=== PATIENT | female | born 1980 | race Caucasian/White ===

== ENCOUNTER 2016-04-14 01:13 | Emergency (ER) | payer OTHER ==
[~2016-04-14] VITALS: Ht 157.5 cm; Wt 101.4 kg
[~2016-04-14 01:13] MED LIST: CLIN150C PO; EFF75 PO; IBUP-1050 PO; LORA-741 PO; MONT1TAB3 PO
[2016-04-14 01:24] VITALS: TEMP 36.8; Ht 157.5 cm; Wt 101.4 kg
[2016-04-14] MEDS ORDERED: FAMOTIDINE IV INJ 20 MG in DEXTROSE 5% 100ML 100 ML IV STA (01:34)
[2016-04-14] MEDS ORDERED: ONDANSETRON INJ 2 MG/ML 2 ML VIAL IV STA (01:34)
[2016-04-14] MEDS ORDERED: SODIUM CHLORIDE 0.9% 1000ML 2,000 ML IV STA (01:34)
[2016-04-14] MEDS ORDERED: DICYCLOMINE HCL 10 MG/ML 2 ML AMP IM ONE (01:45)
[2016-04-14] MEDS ORDERED: ALBUTEROL HFA 8 GM INHALER INH STA (01:50)
[2016-04-14] MEDS ORDERED: ONDANSETRON HOME PACK 4MG OD TAB PO ONE ×2 (02:00→03:00)
[2016-04-14 02:08] VITALS: O2SAT 96
[2016-04-14 02:08] LABS: BASO % 0.5 %; BASO ABS # 0.04 K/uL (0-0.2); COMPLETE YES; EOS % 3.4 %; HEMATOCRIT 42.2 % (37-47); IG% 0.1 %; LYMPH % 22.3 %; LYMPH ABS # 1.82 K/uL (1.2-3.4); MEAN CELL VOLUME 83.9 fL (80-100); MEAN CORPUSCULAR HEMOGLOBIN 27.6 pg (25-34); MEAN CORPUSCULAR HGB CONC 32.9 g/dl (32-36); MEAN PLATELET VOLUME 10.4 fL (7.4-10.4); MONO % 9.2 %; NEUT % 64.5 %; PLATELET COUNT 330 K/uL (130-400); RED BLOOD COUNT 5.03 M/uL (4.2-5.4); WHITE BLOOD COUNT 8.16 K/uL (4.8-10.8)
[2016-04-14 02:25] LABS: URINE APPEARANCE TURBID (CLEAR); URINE BILIRUBIN NEG (NEG); URINE COLOR DK YELLOW; URINE EPITHELIAL CELL AUTO >30 /lpf (0-5); URINE NITRITE POS (NEG); URINE PH 5.5 (4.5-7.5); URINE SPECIFIC GRAVITY 1.029 (1.000-1.030); UROBILINOGEN NEG (NEG); ZZUR CULT IF INDIC CLEAN CATCH YES
[2016-04-14 02:29] LABS: MANUAL MICROSCOPIC REQUIRED? NO; REVIEW REQ? YES
[2016-04-14 02:32] LABS: PREG INTERNAL NEGATIVE QC NEG CLEAR BACKGROUND; PREG INTERNAL POSITIVE QC POS CONTROL LINE
[2016-04-14] MEDS ORDERED: CEFTRIAXONE SOD INJ 1 GM ADDVIAL IV STA (02:43)
[2016-04-14 02:47] LABS: ALKALINE PHOSPHATASE 87 U/L (45-117); ALT/SGPT 22 U/L (12-78); BLOOD UREA NITROGEN 9 mg/dl (7-18); BUN/CREATININE RATIO 10.5 (10-20); CARBON DIOXIDE 25 mmol/L (21-32); CHLORIDE 105 mmol/L (98-107); CREATININE 0.87 mg/dl (0.60-1.20); GLUCOSE 110 mg/dl (70-99)
[2016-04-14 02:50] LABS: POTASSIUM 3.5 mmol/L (3.5-5.1); SODIUM 141 mmol/L (136-145)
[2016-04-14] MEDS ORDERED: KETOROLAC TROMETHAMINE 30 MG/ML VIAL IV STA (02:50)
[2016-04-14 02:55] LABS: AST/SGOT 18 U/L (15-37)
--- NOTE | 2016-04-14 02:55 | EMERGENCY ROOM VISIT NOTE ---
History First contact with patient: 01:26 Chief Complaint: VOMITING Stated Complaint: VOMITING ,DIARRHEA History of Present Illness The patient is a 36 year old female who presents to the Emergency Room with complaints of cough, congestion, fever, chills, vomiting and diarrhea for the past few days. Her mother sick with influenza. Other family members are sick currently. Patient does smoke. No temperature was taken. She is not had anything for antipyretics today. Patient denies recent antibiotics, well water traveling. Patient denies chest pain, dyspnea, neck stiffness, sore throat, headache. No blood or black in the vomiting or diarrhea. Review of Systems See HPI for pertinent positives & negatives. A total of 10 systems reviewed and were otherwise negative. Past Medical/Surgical History Medical Problems: (1) Asthma (2) Cholecystectomy (3) Kidney stone (4) PERSONAL HISTORY OF PEPTIC ULCER DISEASE (5) right ankle sprain Family History Diabetes mellitus Social History Smoking Status: Current Every Day Smoker Alcohol Use: occasionally Drug Use: none Marital Status: single Housing Status: lives with family Current/Historical Medications Scheduled Clindamycin Hcl (Cleocin), 150 MG PO QID Lorazepam (Ativan), 0.5 MG PO DAILY Montelukast Sodium (Singulair), 10 MG PO HS Venlafaxine Hcl (Effexor), 75 MG PO DAILY Scheduled PRN Ibuprofen (Advil), 800 MG PO Q8 PRN for Pain Allergies Coded Allergies: Nitrofurantoin (Verified Allergy, Mild, 11/30/14) Cephalosporins (Verified Allergy, Unknown, 11/30/14) Penicillins (Verified Allergy, Unknown, 11/30/14) Sumatriptan (Verified Allergy, Unknown, RASH, 11/30/14) Physical Exam Vital Signs Date Time Temp Pulse Resp B/P Pulse Ox O2 Delivery O2 Flow Rate FiO2 04/14/16 02:08 96 Room Air 04/14/16 01:24 36.8 96 20 120/84 96 Room Air Physical Exam VITALS: Vitals are noted on the nurse's note and reviewed by myself. Vital signs stable. GENERAL: Pleasant female, in no acute distress, nondiaphoretic, well-developed well-nourished. SKIN: The skin was without rashes, erythema, edema, or bruising. There is no tenting of the skin. Capillary reflex less than 2 seconds. HEAD: Normocephalic atraumatic. EARS: External auditory canals clear, tympanic membranes pearly jacobsen without erythema or effusion bilaterally. EYES: Pupils equal round and reactive to light and accommodation. Conjunctivae without injection, sclerae without icterus. Extraocular movements intact. NOSE: Patent, turbinates without inflammation or discharge. No sinus tenderness. MOUTH: Mucous membranes mildly dry. Pharynx without erythema or exudate. Uvula midline. Airway patent. Tongue does not deviate. NECK: Supple without nuchal rigidity. No lymphadenopathy. No thyromegaly. Cervical spine is nontender. No JVD. HEART: Regular rate and rhythm without murmurs gallops or rubs. LUNGS: Clear to auscultation bilaterally without wheezes, rales or rhonchi. No dullness to percussion. No retractions or accessory muscle use. ABDOMEN: Positive bowel sounds x 4. Normal tympanic percussion. Soft, mild diffuse tenderness with no localized pain. No CVA tenderness, without masses or organomegaly. Cervantes sign negative. No guarding or rebound tenderness. MUSCULOSKELETAL: No muscle atrophy, erythema, or edema noted. NEURO: Patient was alert and oriented to person place and time. Normal sensation to light and sharp touch. No focal neurological deficits. Medical Decision & Procedures Laboratory Results 04/14/16 01:55 Red Blood Count 5.03, Mean Corpuscular Volume 83.9, Mean Corpuscular Hemoglobin 27.6, Mean Corpuscular Hemoglobin Concent 32.9, Mean Platelet Volume 10.4, Neutrophils (%) (Auto) 64.5, Lymphocytes (%) (Auto) 22.3, Monocytes (%) (Auto) 9.2, Eosinophils (%) (Auto) 3.4, Basophils (%) (Auto) 0.5, Neutrophils # (Auto) 5.26, Lymphocytes # (Auto) 1.82, Monocytes # (Auto) 0.75, Eosinophils # (Auto) 0.28, Basophils # (Auto) 0.04 04/14/16 01:55 Test 04/14/16 01:55 White Blood Count 8.16 K/uL (4.8-10.8) Red Blood Count 5.03 M/uL (4.2-5.4) Hemoglobin 13.9 g/dL (12.0-16.0) Hematocrit 42.2 % (37-47) Mean Corpuscular Volume 83.9 fL (80-100) Mean Corpuscular Hemoglobin 27.6 pg (25-34) Mean Corpuscular Hemoglobin Concent 32.9 g/dl (32-36) Platelet Count 330 K/uL (130-400) Mean Platelet Volume 10.4 fL (7.4-10.4) Neutrophils (%) (Auto) 64.5 % Lymphocytes (%) (Auto) 22.3 % Monocytes (%) (Auto) 9.2 % Eosinophils (%) (Auto) 3.4 % Basophils (%) (Auto) 0.5 % Neutrophils # (Auto) 5.26 K/uL (1.4-6.5) Lymphocytes # (Auto) 1.82 K/uL (1.2-3.4) Monocytes # (Auto) 0.75 K/uL (0.11-0.59) Eosinophils # (Auto) 0.28 K/uL (0-0.5) Basophils # (Auto) 0.04 K/uL (0-0.2) RDW Standard Deviation 45.2 fL (36.4-46.3) RDW Coefficient of Variation 14.7 % (11.5-14.5) Immature Granulocyte % (Auto) 0.1 % Immature Granulocyte # (Auto) 0.01 K/uL (0.00-0.02) Urine Color DK YELLOW Urine Appearance TURBID (CLEAR) Urine pH 5.5 (4.5-7.5) Urine Specific [place] 1.029 (1.000-1.030) Urine Protein 1+ (NEG) Urine Glucose (UA) NEG (NEG) Urine Ketones TRACE (NEG) Urine Occult Blood TRACE (NEG) Urine Nitrite POS (NEG) Urine Bilirubin NEG (NEG) Urine Urobilinogen NEG (NEG) Urine Leukocyte Esterase MODERATE (NEG) Urine WBC (Auto) >30 /hpf (0-5) Urine RBC (Auto) 0-4 /hpf (0-4) Urine Hyaline Casts (Auto) 5-10 /lpf (0-5) Urine Epithelial Cells (Auto) >30 /lpf (0-5) Urine Bacteria (Auto) 4+ (NEG) Urine Crystals CALCIUM OXALATE (NONE Urine Pathogenic Casts /lpf (0) Urine Yeast (Auto) (NONE PRSENT) Anion Gap 11.0 mmol/L (3-11) Est Creatinine Clear Calc Drug Dose 99.7 ml/min Estimated GFR () 99.3 Estimated GFR (Non- 85.7 BUN/Creatinine Ratio 10.5 (10-20) Calcium Level 9.0 mg/dl (8.5-10.1) Total Bilirubin 0.2 mg/dl (0.2-1) Alanine Aminotransferase (ALT/SGPT) 22 U/L (12-78) Alkaline Phosphatase 87 U/L (45-117) Total Protein 8.1 gm/dl (6.4-8.2) Albumin 3.3 gm/dl (3.4-5.0) Lipase 84 U/L (73-393) Human Chorionic Gonadotropin, Qual NEG (NEG) Influenza Type A Antigen Neg for Influ A (NEG) Influenza Type B Antigen Neg for Influ B (NEG) Medications Administered Medications (Trade) Dose Ordered Sig/Kota Route Start Time Stop Time Status Last Admin Dose Admin Sodium Chloride (Nss 1000ml) 2,000 ml @ 999 mls/hr Q2H1M STAT IV 04/14/16 01:34 04/14/16 03:34 04/14/16 01:59 999 MLS/HR Ondansetron HCl (Zofran Inj) 4 mg NOW STAT IV 04/14/16 01:34 04/14/16 01:35 DC 04/14/16 02:04 4 MG Dicyclomine HCl 20 mg 20 mg NOW ONCE IM 04/14/16 01:45 04/14/16 01:46 DC 04/14/16 02:05 20 MG Famotidine/ Dextrose (Pepcid IV Inj/ D5 100ml) 102 ml @ 200 mls/hr NOW STAT IV 04/14/16 01:34 04/14/16 02:04 DC 04/14/16 01:59 200 MLS/HR ED Course Prior records/ancillary studies reviewed. Triage Nursing notes reviewed. Additional history obtained from the family. The patient's history was concerning for cough, fever, nausea, vomiting, diarrhea, and abdominal pain. Differential diagnosis: Etiologies such as influenza, gastroenteritis, food borne illness, infections, appendicitis, diverticulitis, inflammatory bowel disease, obstruction, GI bleed , biliary pathology, as well as others were entertained. Physical examination findings: As above. Abdominal examination revealed no localized tenderness. Vital signs reviewed and revealed stable. ER treatment provided: IV hydration 2 L NSS. Zofran, Bentyl, Pepcid On reassessment the patient felt better. Patient was tolerating p.o. intake. Diagnostics interpretation by me: The labs revealed urine consistent with infection and sent for culture. Negative hCG. Negative flu. No leukocytosis Imaging studies: Chest x-ray with no acute consolidation, free air or pneumothorax per my interpretation This appears to be consistent with vomiting and diarrhea with UTI. Patient felt much better after being medicated as above. No pneumonia on x-ray. She was afebrile and nontoxic. She was advised to do clear liquid diet today and then progress as tolerated to bland diet tomorrow. She is advised to follow-up family care in a few days or here in the ER sooner for abdominal pain, fevers, vomiting, worsening signs or symptoms or as needed. Patient did not have acute abdomen on exam. She was well-appearing. By the evaluation outlined above emergent etiologies such as appendicitis, diverticulitis, obstruction, cardiac sources, mesenteric ischemia, aortic pathology, inflammatory bowel disease, renal colic, PUD, biliary pathology, as well as others were deemed relatively unlikely. The pt informed about the findings as listed above. All questions were answered and pleased with the treatment. Return instructions were outlined and the patient was discharged in stable condition. Outpatient prescription management: Zofran, Bactrim Referral: The patient was referred to their primary care physician for follow-up in 2 to 3 days for a recheck of the current condition. Case reviewed with my attending Medical Decision As above Impression Primary Impression: Nausea, vomiting, and diarrhea Additional Impressions: Acute bronchitis UTI (urinary tract infection) Departure Information Dispostion Home / Self-Care Condition GOOD Referrals Franck Moya M.D. (PCP) Patient Instructions My [facility] Additional Instructions DO NOT drive, drink alcohol, operate machinery, or perform dangerous activities today. You were given medications in the ER that can affect your ability to safely function or operate a vehicle. Trimethoprim-Sulfamethoxazole(Bactrim DS): Take one pill twice daily for 3 days for your urine infection. All antibiotics can cause diarrhea. If this occurs and you feel worse or it does not resolve in 1-2 days follow up with your doctor or return to the Emergency Department as this could be signs of serious underlying problems. Any medication can cause an allergic reaction, stop the pills immediately and return to the ER for rash, hives, breathing difficulties, or swelling. Albuterol Inhaler: Take 2 puffs four times daily for five days, then as needed. Zofran(odansetron) tablets 4mg: Take one and allow it to dissolve in your mouth every four to six hours as needed for nausea or vomiting. Acetaminophen(Tylenol) may be used for fever or pain. Use 1000mg every six hours as needed. Avoid using more than 3000mg in a 24 hour period. Rest and drink plenty of fluids as tolerated. Slow sips of water or sports drinks are recommended instead of large amounts all at once. Continue current medications. Once your stomach is settled start with a clear liquid diet (jello, soup broth, etc.) and then advance as tolerated. You should avoid full, heavy meals for about 24 hrs from the time your symptoms resolved. Return to the ER for persistent vomiting, fevers, abdominal pain, chest pains, difficulty breathing, black or bloody stools, worsening of your condition, or as needed. Follow up with your primary physician in 2-3 days for a recheck of your current condition. Problem Qualifiers
[2016-04-14] MEDS ORDERED: SEPTRA DS HOME PACK 1 EA VIAL PO ONE (03:00)
[2016-04-14] MEDS ORDERED: VNTHFA/IN INH (03:12)
[2016-04-14] MEDS ORDERED: OMEP20CA59 PO (03:12)
[2016-04-14] MEDS ORDERED: TRAZ100T29 PO (03:12)
[2016-04-14] MEDS ORDERED: SULF800T23 PO (03:31)
[2016-04-14 03:33] VITALS: BP 108/63; PULSE 72; O2SAT 96
--- NOTE | 2016-04-14 08:14 | DIAGNOSTIC IMAGING REPORT ---
CHEST 2 VIEWS ROUTINE HISTORY: cough. fever COMPARISON: Chest 923 of 7. FINDINGS: The lungs are clear. Cardiac silhouette is normal in size. No pleural effusions. No pneumothorax. Cholecystectomy. Dextroscoliosis of the thoracic spine, unchanged. IMPRESSION: No acute process. Electronically signed by: Kevon Li M.D. 04/14/2016 8:12 AM Dictated Date/Time: 04/14/2016 8:11 AM
--- NOTE | 2016-04-17 11:06 | Pharmacy Progress Note ---
ED Pharmacist Culture FollowUp Date of Service: Apr 17, 2016. Provider's note reviewed. Patient was felt to have UTI based upon UA, although no urinary symptoms reported, however she did have a fever, possibly secondary to bronchitis. HCG negative. She was discharged with Rx for Bactrim DS 1 tab PO BID x 3 days. Urine Cx from 04/14 grew E coli sensitive to SMX/TMP. No action required at this time.
== END 2016-04-14 03:40 | disposition home or self-care (01) ==
LOC: C.EDB 01:15
DX: R11.2 Nausea with vomiting, unspecified (principal); R19.7 Diarrhea, unspecified; J20.9 Acute bronchitis, unspecified; N39.0 Urinary tract infection, site not specified; F17.200 Nicotine dependence, unspecified, uncomplicated; J45.909 Unspecified asthma, uncomplicated; Z90.49 Acquired absence of other specified parts of digestive tract; Z87.11 Personal history of peptic ulcer disease; A49.8 Other bacterial infections of unspecified site

== ENCOUNTER → 2016-12-07 | Outpatient (CLI) | payer OTHER ==
[~2016-12-07] MED LIST changes: -CLIN150C PO; -IBUP-1050 PO; -LORA-741 PO; -MONT1TAB3 PO; +OMEP20CA59 PO; +TRAZ100T29 PO; +VNTHFA/IN INH
[2016-12-07 12:18] LABS: HEMATOCRIT 41.1 % (37-47); MEAN CELL VOLUME 85.8 fL (80-100); MEAN CORPUSCULAR HEMOGLOBIN 26.5 pg (25-34); MEAN CORPUSCULAR HGB CONC 30.9 g/dl (32-36); MEAN PLATELET VOLUME 10.5 fL (7.4-10.4); PLATELET COUNT 372 K/uL (130-400); RED BLOOD COUNT 4.79 M/uL (4.2-5.4); WHITE BLOOD COUNT 14.21 K/uL (4.8-10.8)
[2016-12-07 12:42] LABS: PREG INTERNAL NEGATIVE QC NEG CLEAR BACKGROUND; PREG INTERNAL POSITIVE QC POS CONTROL LINE
== END | disposition home or self-care (01) ==
LOC: C.LAB1850 10:16
PROVIDERS: ATTEND Physician Assistant
DX: N93.9 Abnormal uterine and vaginal bleeding, unspecified (principal)

== ENCOUNTER → 2016-12-07 | Outpatient (CLI) | payer OTHER | END | disposition home or self-care (01) | LOC: C.PAPS 11:36 | PROVIDERS: ATTEND Physician Assistant | DX: Z12.4 Encounter for screening for malignant neoplasm of cervix (principal); Z11.51 Encounter for screening for human papillomavirus (HPV) ==

== ENCOUNTER → 2017-01-01 | Outpatient (CLI) | payer OTHER | END | disposition home or self-care (01) | LOC: C.PATHSPEC 17:46 | PROVIDERS: ATTEND Obstetrics & Gynecology | DX: N93.9 Abnormal uterine and vaginal bleeding, unspecified (principal); N85.00 Endometrial hyperplasia, unspecified ==

== ENCOUNTER 2017-01-22 05:46 | Observation (INO) | payer OTHER ==
[2017-01-11 15:51] VITALS: BMI 41.0
--- NOTE | 2017-01-17 13:45 | PAT Medication Instructions ---
Service Date Jan 17, 2017. Current Home Medication List Acetamin/Butalbital/Caffeine (Fioricet), 1 TAB PO Q4H PRN for MIGRAINES Albuterol Hfa (Ventolin Hfa), 2-4 PUFFS INH Q6H PRN for SOB/Wheezing Buspirone Hcl (Buspirone Hcl), 10 MG PO BID Levocetirizine Dihydrochloride (Xyzal), 5 MG PO HS Montelukast Sodium (Singulair), 10 MG PO HS Omeprazole (Prilosec), 20 MG PO HS Trazodone Hcl (Trazodone), 100-200 MG PO HS Venlafaxine Hcl (Effexor Xr), 75 MG PO HS Venlafaxine Hcl (Effexor Extended Rel), 150 MG PO HS Medication Instructions For Your Scheduled Surgery - Hold the following medications the morning of surgery: Acetamin/Butalbital/Caffeine (Fioricet), 1 TAB PO Q4H PRN for MIGRAINES - Take the following medications the morning of surgery with a sip of water OTHERWISE NOTHING TO EAT OR DRINK AFTER MIDNIGHT: Buspirone Hcl (Buspirone Hcl), 10 MG PO BID Albuterol Hfa (Ventolin Hfa), 2-4 PUFFS INH Q6H PRN for SOB/Wheezing (use if needed; BRING TO HOSPITAL) - Take the following medications as scheduled the night before surgery: Levocetirizine Dihydrochloride (Xyzal), 5 MG PO HS Montelukast Sodium (Singulair), 10 MG PO HS Omeprazole (Prilosec), 20 MG PO HS Trazodone Hcl (Trazodone), 100-200 MG PO HS Venlafaxine Hcl (Effexor Xr), 75 MG PO HS Venlafaxine Hcl (Effexor Extended Rel), 150 MG PO HS Buspirone Hcl (Buspirone Hcl), 10 MG PO BID Acetamin/Butalbital/Caffeine (Fioricet), 1 TAB PO Q4H PRN for MIGRAINES Albuterol Hfa (Ventolin Hfa), 2-4 PUFFS INH Q6H PRN for SOB/Wheezing If you have any questions please call us at [phone] or [phone] or [phone]
[2017-01-17 14:23] LABS: BASO % 0.5 %; BASO ABS # 0.06 K/uL (0-0.2); COMPLETE YES; EOS % 1.9 %; HEMATOCRIT 39.9 % (37-47); IG% 0.2 %; LYMPH % 18.6 %; LYMPH ABS # 2.33 K/uL (1.2-3.4); MEAN CELL VOLUME 85.6 fL (80-100); MEAN CORPUSCULAR HGB CONC 31.6 g/dl (32-36); MEAN PLATELET VOLUME 10.2 fL (7.4-10.4); MONO % 5.2 %; NEUT % 73.6 %; PLATELET COUNT 361 K/uL (130-400); RED BLOOD COUNT 4.66 M/uL (4.2-5.4); WHITE BLOOD COUNT 12.51 K/uL (4.8-10.8)
[2017-01-17 16:36] LABS: CALCIUM 9.1 mg/dl (8.5-10.1); CREATININE 0.74 mg/dl (0.60-1.20); POTASSIUM 4.4 mmol/L (3.5-5.1)
[~2017-01-22] VITALS: Ht 157.5 cm; Wt 102.3 kg
[2017-01-22] VITALS (9 sets, daily range): BP systolic 103–133; BP diastolic 69–86; PULSE 74–115; TEMP 36.3–36.9; O2SAT 94–98; Ht 157.5 cm; Wt 102.3 kg
[~2017-01-22 05:46] MED LIST changes: +BUSP-8 PO; -EFF75 PO; +FRCT/ PO; +LEVO5TAB2 PO; +MONT1TAB3 PO; +VENL150C56 PO; +VENL75CA PO
[2017-01-22] MEDS ORDERED: GENTAMICIN INJ 150 MG in DEXTROSE 5% 100ML 100 ML IV SCH (06:00)
[2017-01-22] MEDS ORDERED: CLINDAMYCIN 600 MG/54 ML D5W 54 ML IV SCH (06:00)
[2017-01-22] MEDS ORDERED: PROMETHAZINE HCL INJ 12.5 MG in SODIUM CHLORIDE 0.9% 50ML 50 ML IV PRN (06:30)
[2017-01-22] MEDS ORDERED: HYDROmorphone INJ 1 MG/ML SYR IV PRN (06:30)
[2017-01-22] MEDS ORDERED: ONDANSETRON INJ 2 MG/ML 2 ML VIAL IV PRN ×2 (06:30→09:30)
[2017-01-22] MEDS ORDERED: ATROPINE SULFATE 0.1 MG/ML 5ML SYR IV PRN (06:30)
[2017-01-22] MEDS ORDERED: EpHEDrine SULFATE INJ 50 MG/ML AMP IV PRN (06:30)
[2017-01-22] MEDS ORDERED: VASOPRESSIN 20 UNIT/ML VIAL ONE (07:00)
[2017-01-22] MEDS ORDERED: LACTATED RINGER'S 1000ML 1,000 ML IV SCH ×2 (07:00→09:19)
[2017-01-22] MEDS ORDERED: LIDOCAINE HCL 2% 2 ML VIAL (20MG/ML) ONE (07:00)
[2017-01-22] MEDS ORDERED: MIDAZOLAM HCL 1 MG/ML 2ML VIAL ONE (07:00)
[2017-01-22] MEDS ORDERED: PROPOFOL IV EMULSION 10 MG/ML 20 ML VIAL IV ONE (07:00)
[2017-01-22] MEDS ORDERED: FENTANYL CITRATE INJ 50 MCG/1 ML 2 ML VIAL ONE ×3 (07:00→09:29)
[2017-01-22] MEDS ORDERED: ROCURONIUM BROMIDE 10 MG/ML 5 ML VIAL IV ONE (07:00)
[2017-01-22] MEDS ORDERED: BUPIVACAINE 0.5 % 5 MG/1 ML MPF 30ML VIAL ONE (07:08)
[2017-01-22] MEDS ORDERED: METHYLENE BLUE 0.5% 10 ML VIAL ONE (07:09)
--- NOTE | 2017-01-22 07:19 | History & Physical Bridge Note ---
H&P Re-Evaluation Bridge Note: I have examined the patient, reviewed the History & Physical and in the interval since the performance of the History & Physical I have noted the following changes of clinical significance: No changes noted
[2017-01-22] MEDS ORDERED: ONDANSETRON INJ 2 MG/ML 2 ML VIAL ONE (08:51)
[2017-01-22] MEDS ORDERED: GLYCOPYRROLATE INJ 0.2 MG/ML VIAL ONE (08:51)
[2017-01-22] MEDS ORDERED: DEXAMETHASONE SOD INJ 4 MG/ML VIAL ONE (08:51)
[2017-01-22] MEDS ORDERED: NEOSTIGMINE METHYLSULFATE 5 MG/5 ML SYR ONE (08:51)
--- NOTE | 2017-01-22 09:19 | [facility] Post Operative Brief Note ---
Immediate Operative Summary Operative Date Jan 22, 2017. Pre-Operative Diagnosis Abnormal uterine bleeding; metrorrhagia; pelvic pain Post-Operative Diagnosis Same as preop Procedure(s) Performed Robotic-assisted Total Laparoscopic Hysterectomy, bilateral salpingectomy, cystoscopy Surgeon Dr. Tao Wildlife Manager Surgeon(s) none Estimated Blood Loss 5 cc Findings mobile uterus sounds to 8cm. normal ovaries bilaterally and fallopian tubes. Bilateral fallopian tubes with paratubal cysts. Liver edge seen barely, obscured by omental fat. filmy adhesions of bladder to anterior lower uterine segment. cystoscopy findings, normal bladder filling, normal bilateral ureteral jets. Fluids (cc crystalloids) 1000 Specimens A: uterus, cervix, bilateral fallopian tubes Drains umanzor Anesthesia general Complication(s) None Disposition Recovery Room / PACU
[2017-01-22] MEDS ORDERED: MTR600X PO (09:24)
[2017-01-22] MEDS ORDERED: OXYC-57 PO (09:24)
--- NOTE | 2017-01-22 09:25 | Discharge Instructions ---
Discharge Instructions Date of Service Jan 22, 2017. Admission Reason for Admission: Abnormal Uterine Bleeding, Pelvic Pain Discharge Discharge Diagnosis / Problem: after surgery Discharge Goals Goal(s): Routine recovery after surgery Activity Recommendations Activity Limitations: as noted below . Instructions / Follow-Up Instructions / Follow-Up POST OPERATIVE: BOWEL FUNCTION/MEDICATIONS: 1. Constipation pain and discomfort are the most common complaints 5-7 days after surgery. Points 2-6 address the things that can help. 2. Chewing gum can help stimulate the gut and help improve digestion and motility. 3. Milk of Magnesia 1-2 times per day until return of bowel function. 4. Colace is a stool softener that helps. Taking this 2-3 times per day until bowel function returns to normal is highly recommended. 5. Dulcolax is a laxative that may be used if several days have passed without a bowel movement. Alternatively Miralax may be used daily instead. 6. Drink plenty of fluids as this will also reduce constipation. 7. Narcotic pain medications will be prescribed by your physician. They are safe to use and we encourage you to use them. If you are not allergic, ibuprofen will also be prescribed. Many patients will be able to transition off of the narcotic medications to ibuprofen by postoperative day 3. ACTIVITY RECOMMENDATIONS: 1. Get plenty of rest and listen to your body. If you are tired, take a nap. 2. You may shower, but do not take a tub bath until you see your doctor at the 2 week post operative visit. 3. Absolutely NO intercourse and nothing in the vagina until you are examined by your doctor at the 8 week visit. At that visit it will be determined when such activities can be resumed. This can range from 6-12 weeks after your surgery depending on healing time. 4. The main physical activity in the first week should be walking. By the second week you can slowly increase activity. There are no limits on walking up and down stairs. 5. Do not lift more than 5-10 lbs for 4 weeks. Remember the "one-handed rule", i.e. if you can lift something with only one hand it's likely okay. 6. Minimize soda drier feeder like vacuuming and exercising for 4 weeks. "Overdoing it" can lead to incisions not healing, pain and vaginal bleeding , so again, listen to your body. 7. Driving can be resumed when you feel able. Do not drive within 24 hours of taking a narcotic medication. EXPECTATIONS: 1. Vaginal spotting, bleeding and discharge are common after surgery. There may even be an odor to the discharge which is often related to sutures used in the vagina. If you experience heavy vaginal bleeding, call the office number day or night [phone]. 2. Bladder discomfort is common after surgery from the catheter. This usually resolves in 1-2 weeks. 3. By the end of the 3rd or 4th week you should be feeling much better. It may take up to 6 weeks for your energy levels to return to normal. 4. Narcotic medications have side effects such as: dizziness, headache, nausea and/or vomiting. If you suspect your pain medication is causing problems, call our office and we may be able to prescribe an alternate medication. 5. The skin incisions are often covered with a liquid bandage. This will gradually peel off over time. CALL THE OFFICE IF YOU HAVE ANY OF THE FOLLOWIN. Temperature of 101 degrees or higher. 2. Severe abdominal or pelvic pain not relieved by pain medication. 3. Persistent nausea or vomiting. 4. Increased pain with urination or difficulty urinating. 5. Bright red bleeding that soaks more than 1 pad per hour. CONTACT PHONE NUMBERS: Main Office: [phone] Surgical Nurse: [phone] extension [phone] FOLLOW-UP: Post-Operative Appointments: * Individual instructions will have been given about the timing of your first examination, but this is usually at the end of the second week home. * You will need to call the office at soon after discharge to make the appointment for your post-op check-up if it has not already been scheduled. * Additional information regarding activity, sexual intercourse and when to return to work will be given at this appointment. WE WISH YOU A SPEEDY RECOVERY! Current Hospital Diet Patient's current hospital diet: Discharge Diet Recommended Diet: Regular Diet Procedures Procedures Performed: Robotic-assisted Total Laparoscopic Hysterectomy, bilateral salpingectomy, cystoscopy Pending Studies Studies pending at discharge: yes List of pending studies: pathology Medical Emergencies . Who to Call and When: Medical Emergencies: If at any time you feel your situation is an emergency, please call 911 immediately. . Non-Emergent Contact Non-Emergency issues call your: Supervisor Beam Department . . "Provider Documentation" section prepared by Daphne Tao. . VTE Core Measure Inpt VTE Proph given/why not?: [place]CD[place] Drug Monitoring Program Search Results: patient reviewed within database, no issues identified, see additional documentation (aware of recent narcotic from dentist)
[2017-01-22] MEDS ORDERED: SIMETHICONE 80 MG CHEW PO PRN (09:30)
[2017-01-22] MEDS ORDERED: OXYCODONE/ACETAMINOPHEN 5-325 TAB PO PRN ×2 (09:30)
[2017-01-22] MEDS ORDERED: IBUPROFEN 600 MG TAB PO PRN (09:30)
[2017-01-22] MEDS ORDERED: KETOROLAC TROMETHAMINE 30 MG/ML VIAL IV. PRN (09:30)
[2017-01-22] MEDS ORDERED: IV FLUIDS COMPLETED PRN (09:30)
[2017-01-22] MEDS ORDERED: ACETAMINOPHEN 325 MG TAB PO PRN (09:30)
--- NOTE | 2017-01-22 09:54 | [facility] Operative Report ---
Operative Report Operative Date Jan 22, 2017. Pre-Operative Diagnosis Abnormal uterine bleeding; metrorrhagia; pelvic pain Post-Operative Diagnosis Same as preop Procedure(s) Performed Robotic-assisted Total Laparoscopic Hysterectomy, bilateral salpingectomy, cystoscopy Surgeon Dr. Tao Envelope Stamping Machine Operator Surgeon(s) none Estimated Blood Loss 5 cc Findings normal uterus, mobile, sounds to 8cm. filmy adhesions of bladder anteriorly. bilateral ovaries and fallopian tubes are normal. bilateral paratubal cysts are noted. liver edge barely seen and normal, obscured by omental fat. cystoscopy findings, normal bladder filling and normal ureteral jets. Fluids 1000 Specimens A: uterus, cervix, bilateral fallopian tubes Drains umanzor Anesthesia general Disposition Recovery Room / PACU Indications 36-year-old with a history of abnormal uterine bleeding, metrorrhagia and pelvic pain who desires definitive surgical management for her bleeding problems. She has tried a Mirena IUD previously and felt to much pain. I did not think she was a great candidate for an ablation given her metrorrhagia and morbid obesity. She declined hormonal management. She is aware that hysterectomy would likely not solve her pain issues. She wanted the procedure for management of her bleeding issues. Description of Procedure Patient was taken to the operating room and identified. After adequate general anesthesia was obtained obtained she was placed in the dorsolithotomy position and prepped and draped in the usual sterile fashion. Attention was turned to the patient's vagina where a Umanzor catheter was placed under sterile conditions. Retractors the cervix was visualized and grasped on its anterior lip with a single-toothed tenaculum. A single interrupted suture of 0 Vicryl was placed at the 3 o'clock position. Cervix was sequentially dilated using Hegar dilators to 23. The uterus sounded to 8 cm. The [employer] care uterine manipulator was gently placed through the cervical os into the uterine cavity and the balloon was inflated. The cup was tied down and the stabilizing cup was placed after all the retractors were removed. Attention was then turned to the patient's abdomen. An infraumbilical skin incision was made with the scalpel. A Veress needle was placed however this was unsuccessful due to high opening pressures. Using retractors the fascia was identified. It was elevated and opened up into sharply using Metzenbaum scissors. Under direct visualization the 12 mm trocar was placed intraperitoneally. A pneumoperitoneum was created and the patient was placed in steep Trendelenburg. The pelvis was inspected with the findings as noted above. Two da Tha trocar sites left and right of the midline were created by first making skin incisions and then placing under direct visualization da Tha trocars. The da Tha robot was then brought to the patient's bedside. The appropriate instrument arms were connected to the appropriate trochars. The camera was introduced. The monopolar ramón through instrument arm #1 and the fenestrated bipolar instrument arm #2 were introduced into the abdomen. The surgeon then went to the console. The left infundibulopelvic ligament was identified. The fallopian tube was dissected off to be included in the specimen using monopolar ramón and bipolar cautery. The round ligament/ utero-ovarian ligament complex was then coagulated and transected. The bladder flap was begun from the left towards the midline. The uterine artery pedicle was skeletonized and then coagulated. It was transected and further coagulation then took place. Attention was turned to the right utero -ovarian ligament round ligament fallopian tube complex. The fallopian tube was dissected away to be included a specimen from the mesosalpinx. The utero- ovarian round ligament complex was coagulated and transected. The bladder flap was begun from the right and then across the midline. Uterine artery pedicle was skeletonized. It was coagulated and transected sequentially. The cardinal ligament attachments were further coagulated and transected. Attention was returned to the left cardinal ligament which was also coagulated and transected. The bladder fibers were coagulated and transected and pushed well away from the planned colpotomy and the colpotomy was begun. It was carried down circumferentially and the cervix was carved away from the upper vagina. The specimen was then brought out vaginally. The 2-0V LOC 90 suture was then brought in through the vagina. The #1 instrument arm was replaced with a large needle pile driver operator. The cuff was then closed in a usual fashion using the suture material. Back stitches were placed. The scissors and then a needle pile driver operator were brought through instrument arm #1 to take the suture material out of the abdomen. The pelvis was then irrigated. There was no active bleeding sites. The CO2 pneumoperitoneum was let down and there were still no active bleeding sites. At this point the procedure was terminated. The CO2 gas was allowed to escape from the patient patient's abdomen after the camera and instruments were removed. A cystoscopy was performed with the findings as noted above. A new Umanzor catheter was placed. The da Tha was then moved away from the patient's bedside. The trocars were removed. The fascia was reapproximated in from the day with an interrupted suture of 0 Vicryl. All incisions were dressed with Marcaine and stitched in a subcuticular fashion using 4-0 Vicryl. They were then dressed with Dermabond. The patient was returned to supine position she delivered from anesthesia and transported to recovery room in stable condition. All sponge lap and needle counts were correct 2. I attest to the content of the Intraoperative Record and any orders documented therein. Any exceptions are noted below.
[2017-01-22] MEDS: FENTANYL CITRATE INJ 50 MCG/1 ML 2 ML VIAL IV PRN ×3 (09:59→10:11)
--- NOTE | 2017-01-22 10:20 | Anesthesiology Progress Note ---
Anesthesia Post Op Note Date & Time Jan 22, 2017 at 10:19 Vital Signs Pain Intensity: 5 Vital Signs Past 12 Hours Date Time Temp Pulse Resp B/P (MAP) Pulse Ox O2 Delivery O2 Flow Rate FiO2 01/22/17 10:10 108 16 133/88 97 Nasal Cannula 4 01/22/17 10:00 103 16 147/97 97 Nasal Cannula 4 01/22/17 09:50 109 16 147/97 97 Oxymask 15 01/22/17 09:40 115 14 143/90 97 Oxymask 15 01/22/17 09:31 36.4 116 14 137/82 97 Oxymask 15 01/22/17 06:10 36.6 115 18 123/75 (91) 95 Room Air Notes Mental Status: alert / awake / arousable, participated in evaluation Pt Amnestic to Procedure: Yes Nausea / Vomiting: adequately controlled Pain: adequately controlled Airway Patency, RR, SpO2: stable & adequate BP & HR: stable & adequate Hydration State: stable & adequate Anesthetic Complications: no major complications apparent
--- NOTE | 2017-01-22 11:29 | Medical Student: [facility] ---
Immediate Operative Summary Operative Date Jan 22, 2017. Pre-Operative Diagnosis abnormal uterine bleeding, metrorrhagia, pelvic pain Post-Operative Diagnosis same as pre-operative diagnosis Procedure(s) Performed Robotic-assisted total laparoscopic hysterectomy, bilateral salpingectomy, and cystoscopy Surgeon Dr. Tao Rigger Surgeon(s) none Estimated Blood Loss 5cc Findings Normal appearing approximately 8-10cm uterus. Normal appearing fallopian tubes and ovaries. Paratubal cysts were present. Anterior uterine wall adhesions to the bladder. Cystoscopy revealed normal ureteral flow. Fluids (cc crystalloids) 1000cc Specimens uterus, cervix, and bilateral fallopian tubes Drains Stock Anesthesia general Complication(s) None Disposition Recovery Room / PACU
--- NOTE | 2017-01-22 20:08 | Discharge Summary ---
Discharge Summary Date of Service Jan 22, 2017. Date of discharge 01/22/17 Discharge Summary Admission diagnoses: abnormal uterine bleeding, metrorrhagia, pelvic pain Discharge diagnoses: same Procedures: total laparoscopic hysterectomy, bilateral salpingectomies, cystoscopy, robotic assistance Brief history and hospital course: 36yo with abnormal bleeding, metrorrhagia and pelvic pain in setting of morbid obesity who desires definitive surgical therapy. See H&P for full details. She underwent the above procedures without incident. Her estimated blood loss was 5cc. On her postoperative day #0 she was stable for discharge home. She was given pain medication prescriptions and instructions. She was to followup in 2 weeks for postoperative check up.
== END 2017-01-22 18:05 | disposition home or self-care (01) ==
LOC: C.ACU 05:46 → C.MS4N 06:30 → ENRESERV 10:11
PROVIDERS: ADMIT Obstetrics & Gynecology; ATTEND Obstetrics & Gynecology
DX: N93.9 Abnormal uterine and vaginal bleeding, unspecified (principal); N92.1 Excessive and frequent menstruation with irregular cycle; R10.2 Pelvic and perineal pain; D28.2 Benign neoplasm of uterine tubes and ligaments; J45.909 Unspecified asthma, uncomplicated; F32.9 Major depressive disorder, single episode, unspecified; G43.909 Migraine, unspecified, not intractable, without status migrainosus; F17.200 Nicotine dependence, unspecified, uncomplicated; E66.01 Morbid (severe) obesity due to excess calories; Z68.41 Body mass index [BMI] 40.0-44.9, adult; Z88.0 Allergy status to penicillin; Z90.89 Acquired absence of other organs; Z90.49 Acquired absence of other specified parts of digestive tract; Z98.890 Other specified postprocedural states; Z81.8 Family history of other mental and behavioral disorders; Z83.3 Family history of diabetes mellitus; Z82.49 Family history of ischemic heart disease and other diseases of the circulatory system
CPT/HCPCS: 58571; S2900

== ENCOUNTER → 2017-02-08 | Outpatient (CLI) | payer OTHER ==
[~2017-02-08] MED LIST changes: +MTR600X PO; +OXYC-57 PO
[2017-02-08 14:47] LABS: URINE APPEARANCE TURBID (CLEAR); URINE COLOR DK YELLOW; URINE EPITHELIAL CELL AUTO >30 /lpf (0-5); URINE NITRITE NEG (NEG); URINE SPECIFIC GRAVITY 1.032 (1.000-1.030); UROBILINOGEN NEG (NEG)
[2017-02-08 14:58] LABS: MANUAL MICROSCOPIC REQUIRED? NO; REVIEW REQ? YES; URINE BILIRUBIN NEG (NEG)
== END | disposition home or self-care (01) ==
LOC: C.LABSPEC 13:41
PROVIDERS: ATTEND Obstetrics & Gynecology
DX: R39.9 Unspecified symptoms and signs involving the genitourinary system (principal)

== ENCOUNTER 2017-03-25 17:25 | Emergency (ER) | payer OTHER ==
[~2017-03-25] VITALS: Ht 157.5 cm; Wt 94.9 kg
[~2017-03-25 17:25] MED LIST changes: -VENL75CA PO; +VENL75CA88 PO
[2017-03-25 17:26] VITALS: TEMP 36.6; Ht 157.5 cm; Wt 94.9 kg
[2017-03-25] MEDS ORDERED: DIPH1TAB87 PO (17:51)
--- NOTE | 2017-03-25 18:04 | DIAGNOSTIC IMAGING REPORT ---
CHEST ONE VIEW PORTABLE CLINICAL HISTORY: cp eval for pna dyspnea COMPARISON STUDY: 04/14/2016 FINDINGS: The bones soft tissues and hemidiaphragms are normal. The cardiomediastinal silhouette is normal. The lungs are clear. The pulmonary vasculature is normal. IMPRESSION: Negative chest. The above report was generated using voice recognition software. It may contain grammatical, syntax or spelling errors. Electronically signed by: Franck Pena M.D. 03/25/2017 6:03 PM Dictated Date/Time: 03/25/2017 6:03 PM
[2017-03-25 18:26] LABS: BASO % 0.4 %; BASO ABS # 0.05 K/uL (0-0.2); EOS ABS # 0.26 K/uL (0-0.5); HEMATOCRIT 41.3 % (37-47); HEMOGLOBIN 13.5 g/dL (12.0-16.0); IG# 0.03 K/uL (0.00-0.02); LYMPH % 24.2 %; LYMPH ABS # 3.13 K/uL (1.2-3.4); MEAN CELL VOLUME 85.3 fL (80-100); MEAN CORPUSCULAR HEMOGLOBIN 27.9 pg (25-34); MEAN CORPUSCULAR HGB CONC 32.7 g/dl (32-36); MEAN PLATELET VOLUME 10.8 fL (7.4-10.4); MONO % 5.8 %; MONO ABS # 0.75 K/uL (0.11-0.59); NEUT % 67.4 %; NEUT ABS # 8.72 K/uL (1.4-6.5); PLATELET COUNT 341 K/uL (130-400); RED CELL DISTRIBUTION WIDTH CV 15.6 % (11.5-14.5); RED CELL DISTRIBUTION WIDTH SD 49.1 fL (36.4-46.3); WHITE BLOOD COUNT 12.94 K/uL (4.8-10.8)
[2017-03-25 18:37] LABS: INR 0.9 (0.9-1.1); PTT PATIENT 25.2 SECONDS (21.0-31.0)
[2017-03-25 18:44] LABS: ALBUMIN 3.3 gm/dl (3.4-5.0); ALT/SGPT 28 U/L (12-78); AST/SGOT 22 U/L (15-37); BLOOD UREA NITROGEN 12 mg/dl (7-18); CALCIUM 10.1 mg/dl (8.5-10.1); CARBON DIOXIDE 25 mmol/L (21-32); CREATININE 0.81 mg/dl (0.60-1.20); GLUCOSE 90 mg/dl (70-99); POTASSIUM 3.9 mmol/L (3.5-5.1); SODIUM 135 mmol/L (136-145)
[2017-03-25 18:46] LABS: ALKALINE PHOSPHATASE 87 U/L (45-117); TOTAL PROTEIN 9.1 gm/dl (6.4-8.2)
--- NOTE | 2017-03-25 18:47 | DIAGNOSTIC IMAGING REPORT ---
VENOUS DOPPLER LWR EXT BILA HISTORY: Pain. Edema. eval for dvt COMPARISON STUDY: None. FINDINGS: There is normal compressibility, flow, and augmentation within the bilateral lower extremity deep venous systems. IMPRESSION: No DVT within the right or left lower extremity. The above report was generated using voice recognition software. It may contain grammatical, syntax or spelling errors. Electronically signed by: Franck Pena M.D. 03/25/2017 6:45 PM Dictated Date/Time: 03/25/2017 6:45 PM
[2017-03-25] MEDS ORDERED: ACETAMINOPHEN 325 MG TAB PO STA (19:13)
[2017-03-25] MEDS ORDERED: OPTIRAY 320 IV PRN (19:45)
--- NOTE | 2017-03-25 20:21 | DIAGNOSTIC IMAGING REPORT ---
(CHEST FOR PE) ANGIO WITH CT DOSE: 649.84 mGy.cm HISTORY: Chest pain dyspnea TECHNIQUE: Multiaxial CT images of the chest were performed following the intravenous administration of contrast to evaluate the pulmonary arteries. Maximal intensity projection images were also obtained. A dose lowering technique was utilized adhering to the principles of ALARA. COMPARISON STUDY: None. FINDINGS: There is a normal caliber thoracic aorta with no evidence for dissection. There is no evidence for pulmonary embolus. No pleural effusions. No pneumothorax. The liver and spleen are unremarkable. No mediastinal or hilar lymphadenopathy. The central airways are patent. The lungs are clear. IMPRESSION: No evidence for pulmonary embolus. The lungs are clear. The above report was generated using voice recognition software. It may contain grammatical, syntax or spelling errors. Electronically signed by: Franck Pena M.D. 03/25/2017 8:19 PM Dictated Date/Time: 03/25/2017 8:17 PM
[2017-03-25] MEDS ORDERED: SULFAMETHOXAZOLE/TRIMETHOPRIM DS 800/160MG TAB PO STA (22:13)
--- NOTE | 2017-03-25 22:46 | Rheumatology Consultation ---
Rheumatology Consultation Date of Consultation: Mar 25, 2017. Reason for Consultation: Purpura on her legs History of Present Illness Patient noticed hives on her legs 1 week ago. They resolved and she developed purpura on her legs that has begun to get better. It covers her thighs left leg worse than right. She notes that she has polyarthralgia in her hands and knees and ankles but no arthritis She denies abdominal pain, sore throat and she does have symptoms of a UTI. She had noted that she felt like she had a pulled chest wall muscle.A cardiac w/ u was done that was negative. She has tried motrin and that did not help her rash or arthralgias. Past Medical/Surgical History Medical History: no pertinent history Surgical History: hysterectomy no significant family history Social History Smoking Status: Current Every Day Smoker History of Alcohol Use: Yes (SOCIAL DRINKING) Drug Use: none Marital Status: single Review of Systems Constitutional: + see HPI, No fever, No chills, No sweats, No weight loss, No weakness, No fatigue, No problem reported Eyes: No see HPI, No worsening of vision, No eye pain, No redness, No discharge , No diplopia, No problem reported ENT: No see HPI, No hearing loss, No unusual epistaxis, No nasal symptoms, No sore throat, No tinnitus, No dental problems, No trouble swallowing, No problem reported Respiratory: No see HPI, No cough, No sputum, No wheezing, No shortness of breath, No dyspnea on exertion, No dyspnea at rest, No hemoptysis, No problem reported Cardiac: No see HPI, No chest pain, No orthopnea, No PND, No edema, No claudication, No palpitations, No problem reported Abdomen: No see HPI, No pain, No nausea, No vomiting, No diarrhea, No constipation, No GI bleeding, No problem reported Musculoskeletal: + joint pain (polyarthralgia of fingers ,and knees but full range of motion with no swelling or warmth) Female : + dysuria, + urinary frequency, No see HPI, No hematuria, No incontinence, No abnormal vaginal bleeding, No vaginal discharge, No problem reported Neurologic: No see HPI, No memory loss, No paralysis, No weakness, No numbness/ tingling, No vertigo, No balance problems, No problem reported Endo: No see HPI, No fatigue, No excessive thirst, No excessive urination, No problem reported Skin: + rash (palpable purpera dependant on legs with left worse than right) Allergies Coded Allergies: Cephalosporins (Verified Allergy, Unknown, UNKNOWN, 03/25/17) Penicillins (Verified Allergy, Unknown, UNKNOWN - A CHILD, 03/25/17) Sumatriptan (Verified Allergy, Unknown, RASH, 03/25/17) Nitrofurantoin (Verified Adverse Reaction, Mild, NAUSEA, 03/25/17) Medications Current Inpatient Medications Medications (Trade) Dose Ordered Sig/Kota Route Start Time Stop Time Status Last Admin Dose Admin Ioversol (Optiray 320) 100 ml UD PRN IV 03/25/17 19:45 03/29/17 19:44 Physical Exam Date Time Temp Pulse Resp B/P (MAP) Pulse Ox O2 Delivery O2 Flow Rate FiO2 03/25/17 22:11 93 03/25/17 21:02 87 19 117/66 93 Room Air 03/25/17 19:01 99 20 136/79 95 Room Air 03/25/17 19:01 100 03/25/17 17:26 36.6 119 17 134/72 99 Eyes: bilateral eyes normal inspection ENT: normal ENT inspection, hearing grossly normal, pharynx normal Neck: supple, no adenopathy, thyroid normal Respiratory: chest non-tender, lungs clear, normal breath sounds Cardiovascular: regular rate, rhythm, no edema, no gallop, no JVD Abdomen: normal bowel sounds Neurologic/Psychiatric: no motor/sensory deficits Skin: + rash Laboratory Results Last 24 Hours Test 03/25/17 18:00 03/25/17 20:45 White Blood Count 12.94 K/uL Red Blood Count 4.84 M/uL Hemoglobin 13.5 g/dL Hematocrit 41.3 % Mean Corpuscular Volume 85.3 fL Mean Corpuscular Hemoglobin 27.9 pg Mean Corpuscular Hemoglobin Concent 32.7 g/dl Platelet Count 341 K/uL Mean Platelet Volume 10.8 fL Neutrophils (%) (Auto) 67.4 % Lymphocytes (%) (Auto) 24.2 % Monocytes (%) (Auto) 5.8 % Eosinophils (%) (Auto) 2.0 % Basophils (%) (Auto) 0.4 % Neutrophils # (Auto) 8.72 K/uL Lymphocytes # (Auto) 3.13 K/uL Monocytes # (Auto) 0.75 K/uL Eosinophils # (Auto) 0.26 K/uL Basophils # (Auto) 0.05 K/uL RDW Standard Deviation 49.1 fL RDW Coefficient of Variation 15.6 % Immature Granulocyte % (Auto) 0.2 % Immature Granulocyte # (Auto) 0.03 K/uL Prothrombin Time 9.5 SECONDS Prothromb Time International Ratio 0.9 Activated Partial Thromboplast Time 25.2 SECONDS Partial Thromboplastin Ratio 1.0 Sodium Level 135 mmol/L Potassium Level 3.9 mmol/L Chloride Level 103 mmol/L Carbon Dioxide Level 25 mmol/L Anion Gap 7.0 mmol/L Blood Urea Nitrogen 12 mg/dl Creatinine 0.81 mg/dl Est Creatinine Clear Calc Drug Dose 102.1 ml/min Estimated GFR () 107.5 Estimated GFR (Non- 92.8 BUN/Creatinine Ratio 15.5 Random Glucose 90 mg/dl Calcium Level 10.1 mg/dl Total Bilirubin 0.3 mg/dl Direct Bilirubin < 0.1 mg/dl Aspartate Amino Transf (AST/SGOT) 22 U/L Alanine Aminotransferase (ALT/SGPT) 28 U/L Alkaline Phosphatase 87 U/L Total Protein 9.1 gm/dl Albumin 3.3 gm/dl Lyme Disease IgG Antibody NEG Lyme Disease IgM Antibody NEG Urine Color YELLOW Urine Appearance CLOUDY Urine pH 5.0 Urine Specific [place] > 1.045 Urine Protein NEG Urine Glucose (UA) NEG Urine Ketones NEG Urine Occult Blood NEG Urine Nitrite POS Urine Bilirubin NEG Urine Urobilinogen NEG Urine Leukocyte Esterase TRACE Urine WBC (Auto) >30 /hpf Urine RBC (Auto) 5-10 /hpf Urine Hyaline Casts (Auto) 1-5 /lpf Urine Epithelial Cells (Auto) >30 /lpf Urine Bacteria (Auto) 4+ Urine Pathogenic Casts /lpf Assessment & Plan Assessment & Plan: 1.Palpable purpura, 2.polyarthralgis, 3.Urinary tract infection 4 possible HSP 5.UTI consideration was given to the possible diagnosis of HSP. although there is no evidence of serious organ involvement such as her kidney or abdomine. Her urine did not show casts or protein ,her urinary sediment was inactive. She did however have evidence of a UTI that I will address later. She did not have any abdominal symptoms that would be consistant with a vasculitis associated with HSP. Nor does she have significant synovitis and joint swelling in her ankles or knees Her UTI could have triggered her immune system to creat the purpura but at this time there is no evidence of any internal organ involvement with a vasculitis of HSP Polyarthralgia:There is no evidence of infectious arthritis and it is not uncommon to have polyarthralgis with purpura For treatment since there is no evidence of life threatening organ involvement I would recommend Prednisone 20 mg po q day x 3 days then 10 mg po q day for3 days , then 5 mg po q day for 3 days then D/C I also agree with coverage for her UTI. She has an appointment with GI this week and I would follow up with her primary care this week. Follow up with me in 2 weeks
[2017-03-25 23:01] VITALS: BP 126/93; PULSE 100; O2SAT 99
--- NOTE | 2017-03-25 23:33 | EMERGENCY ROOM VISIT NOTE ---
History Report prepared by Scotty: Joan Newton Under the Supervision of: Dr. Irving Smith M.D. First contact with patient: 17:39 Chief Complaint: RASH Stated Complaint: ALL OVER HIVES, AND JOINT PAIN History of Present Illness The patient is a 37 year old female who presents to the Emergency Room with complaints of a reoccurring rash beginning two days ago. The patient states she had a rash to her bilateral legs occurring nine days ago. She describes her rash as hives and notes that the rash was raised. She reports taking a Benadryl which did not relieve her symptoms. However, the rash resided after a couple days. She notes itchiness, swelling and pain to the rash. Two days ago, the patient started to have a rash to her legs again which also spread to her lower abdomen. With this rash, she notes pain and swelling to her fingers, elbows and ankles. The patient also reports a migraine with neck pain beginning two weeks ago. She notes intermittent central chest pain beginning about two weeks ago. She states her chest pain feels like a "pulled muscle". She denies seeing a [place] with any of the rashes. She also denies any fever or throat pain. The patient had a hysterectomy on the 23 of January. She is not on hormone replacement therapy and still has her ovaries. The patient has a history of asthma, COPD, and migraines. She is a smoker. Source of History: patient Onset: 2 days ago Position: other (generalized) Quality: other (rash) Timing: other (reoccurring) Associated Symptoms: No fevers Review of Systems See HPI for pertinent positives & negatives. A total of 10 systems reviewed and were otherwise negative. Past Medical & Surgical Medical Problems: (1) Abnormal uterine bleeding (AUB) (2) Asthma (3) Cholecystectomy (4) COPD (chronic obstructive pulmonary disease) (5) Kidney stone (6) Metrorrhagia (7) Migraine (8) Pelvic pain (9) PERSONAL HISTORY OF PEPTIC ULCER DISEASE (10) right ankle sprain Family History Diabetes mellitus Social History Smoking Status: Current Every Day Smoker Alcohol Use: occasionally Drug Use: none Marital Status: single Housing Status: lives with family Current/Historical Medications Scheduled PRN Albuterol Hfa (Ventolin Hfa), 2-4 PUFFS INH Q6H PRN for SOB/Wheezing Diphenhydramine Hcl (Benadryl Allergy), 50 MG PO Q5H PRN for Itching Trazodone Hcl (Trazodone), 100-200 MG PO HS PRN for Sleep Allergies Coded Allergies: Cephalosporins (Verified Allergy, Unknown, UNKNOWN, 03/25/17) Penicillins (Verified Allergy, Unknown, UNKNOWN - A CHILD, 03/25/17) Sumatriptan (Verified Allergy, Unknown, RASH, 03/25/17) Nitrofurantoin (Verified Adverse Reaction, Mild, NAUSEA, 03/25/17) Physical Exam Vital Signs Date Time Temp Pulse Resp B/P (MAP) Pulse Ox O2 Delivery O2 Flow Rate FiO2 03/25/17 23:01 100 18 126/93 99 03/25/17 22:11 93 03/25/17 21:02 87 19 117/66 93 Room Air 03/25/17 19:01 99 20 136/79 95 Room Air 03/25/17 19:01 100 03/25/17 17:26 36.6 119 17 134/72 99 Physical Exam Constitutional: Vital signs reviewed. Eyes: Pupils are equal round reactive to light. Conjunctiva are noninjected. ENT: Pharynx is clear without erythema or exudate. Mucous membranes are moist. Neck supple without meningeal signs. Respiratory: Clear to auscultation bilaterally. Breath sounds are equal bilaterally. Cardiovascular: Regular rate and rhythm. No rubs or gallops. GI: Soft, nondistended and nontender. Bowel sounds are present. Musculoskeletal: Bilateral leg edema with petechia and purpura throughout lower extremities mostly involving upper portions, scattered petechia to lower abdomen and buttock. Integumentary: As above. Neurological: The patient is awake and alert. No focal deficits. Psychiatric: Normal affect. Medical Decision & Procedures ER Provider Diagnostic Interpretation: Radiology results as stated below per my review and the radiologist's interpretation: CHEST ONE VIEW PORTABLE FINDINGS: The bones soft tissues and hemidiaphragms are normal. The cardiomediastinal silhouette is normal. The lungs are clear. The pulmonary vasculature is normal. IMPRESSION: Negative chest. The above report was generated using voice recognition software. It may contain grammatical, syntax or spelling errors. Electronically signed by: Franck Pena M.D. VENOUS DOPPLER LWR EXT BILA FINDINGS: There is normal compressibility, flow, and augmentation within the bilateral lower extremity deep venous systems. IMPRESSION: No DVT within the right or left lower extremity. The above report was generated using voice recognition software. It may contain grammatical, syntax or spelling errors. Electronically signed by: Franck Pena M.D. (CHEST FOR PE) ANGIO WITH FINDINGS: There is a normal caliber thoracic aorta with no evidence for dissection. There is no evidence for pulmonary embolus. No pleural effusions. No pneumothorax. The liver and spleen are unremarkable. No mediastinal or hilar lymphadenopathy. The central airways are patent. The lungs are clear. IMPRESSION: No evidence for pulmonary embolus. The lungs are clear. The above report was generated using voice recognition software. It may contain grammatical, syntax or spelling errors. Electronically signed by: Franck Pena M.D. Laboratory Results 03/25/17 18:00 Red Blood Count 4.84, Mean Corpuscular Volume 85.3, Mean Corpuscular Hemoglobin 27.9, Mean Corpuscular Hemoglobin Concent 32.7, Mean Platelet Volume 10.8, Neutrophils (%) (Auto) 67.4, Lymphocytes (%) (Auto) 24.2, Monocytes (%) (Auto) 5.8, Eosinophils (%) (Auto) 2.0, Basophils (%) (Auto) 0.4, Neutrophils # (Auto) 8.72, Lymphocytes # (Auto) 3.13, Monocytes # (Auto) 0.75, Eosinophils # (Auto) 0.26, Basophils # (Auto) 0.05 03/25/17 18:00 Test 03/25/17 18:00 03/25/17 20:45 White Blood Count 12.94 K/uL (4.8-10.8) Red Blood Count 4.84 M/uL (4.2-5.4) Hemoglobin 13.5 g/dL (12.0-16.0) Hematocrit 41.3 % (37-47) Mean Corpuscular Volume 85.3 fL (80-100) Mean Corpuscular Hemoglobin 27.9 pg (25-34) Mean Corpuscular Hemoglobin Concent 32.7 g/dl (32-36) Platelet Count 341 K/uL (130-400) Mean Platelet Volume 10.8 fL (7.4-10.4) Neutrophils (%) (Auto) 67.4 % Lymphocytes (%) (Auto) 24.2 % Monocytes (%) (Auto) 5.8 % Eosinophils (%) (Auto) 2.0 % Basophils (%) (Auto) 0.4 % Neutrophils # (Auto) 8.72 K/uL (1.4-6.5) Lymphocytes # (Auto) 3.13 K/uL (1.2-3.4) Monocytes # (Auto) 0.75 K/uL (0.11-0.59) Eosinophils # (Auto) 0.26 K/uL (0-0.5) Basophils # (Auto) 0.05 K/uL (0-0.2) RDW Standard Deviation 49.1 fL (36.4-46.3) RDW Coefficient of Variation 15.6 % (11.5-14.5) Immature Granulocyte % (Auto) 0.2 % Immature Granulocyte # (Auto) 0.03 K/uL (0.00-0.02) Prothrombin Time 9.5 SECONDS (9.0-12.0) Prothromb Time International Ratio 0.9 (0.9-1.1) Activated Partial Thromboplast Time 25.2 SECONDS (21.0-31.0) Partial Thromboplastin Ratio 1.0 Anion Gap 7.0 mmol/L (3-11) Est Creatinine Clear Calc Drug Dose 102.1 ml/min Estimated GFR () 107.5 Estimated GFR (Non- 92.8 BUN/Creatinine Ratio 15.5 (10-20) Calcium Level 10.1 mg/dl (8.5-10.1) Total Bilirubin 0.3 mg/dl (0.2-1) Direct Bilirubin < 0.1 mg/dl (0-0.2) Aspartate Amino Transf (AST/SGOT) 22 U/L (15-37) Alanine Aminotransferase (ALT/SGPT) 28 U/L (12-78) Alkaline Phosphatase 87 U/L (45-117) Total Protein 9.1 gm/dl (6.4-8.2) Albumin 3.3 gm/dl (3.4-5.0) Lyme Disease IgG Antibody NEG (NEG) Lyme Disease IgM Antibody NEG (NEG) Urine Color YELLOW Urine Appearance CLOUDY (CLEAR) Urine pH 5.0 (4.5-7.5) Urine Specific [place] > 1.045 (1.000-1.030) Urine Protein NEG (NEG) Urine Glucose (UA) NEG (NEG) Urine Ketones NEG (NEG) Urine Occult Blood NEG (NEG) Urine Nitrite POS (NEG) Urine Bilirubin NEG (NEG) Urine Urobilinogen NEG (NEG) Urine Leukocyte Esterase TRACE (NEG) Urine WBC (Auto) >30 /hpf (0-5) Urine RBC (Auto) 5-10 /hpf (0-4) Urine Hyaline Casts (Auto) 1-5 /lpf (0-5) Urine Epithelial Cells (Auto) >30 /lpf (0-5) Urine Bacteria (Auto) 4+ (NEG) Urine Pathogenic Casts /lpf (0) Troponin 0.1, D-dimer above 5000, Laboratory results as reviewed by me. Medications Administered Medications (Trade) Dose Ordered Sig/Kota Route Start Time Stop Time Status Last Admin Dose Admin Acetaminophen (Tylenol Tab) 650 mg NOW STAT PO 03/25/17 19:13 03/25/17 19:14 DC 03/25/17 19:28 650 MG Trimethoprim/ Sulfamethoxazole (Septra Ds 800/ 160MG Tab) 1 tab NOW STAT PO 03/25/17 22:13 03/25/17 22:15 DC 03/25/17 22:34 1 TAB ECG Indication: chest pain Rate (beats per minute): 105 Rhythm: sinus tachycardia Findings: no acute ischemic change, no ectopy ED Course 1742: The patient was evaluated in room B3B. A complete history and physical exam was performed. 1911: I discussed test result with the patient. She is requesting something for her pain. The patient is agreeable to CT. 1912: Ordered Acetaminophen 650 mg PO. 2028: I updated the patient on her test results. 2105: I spoke with Dr. Hua of Hematology/Oncology. We discussed the patient and her results. She states she doesn't usually treat cases like this and recommended us calling rheumatology. 2118: I spoke with Dr. Barrios of [facility] Rheumatology. We discussed the patient and her results. She will come in and evaluate the patient. 2127: The patient denies having any urinary symptoms. She reports the last time her PCP checked her urine and did cultures it was negative. 2207: Dr. Barrios of [facility] Rheumatology at bedside. 3: Trimethoprim/Sulfamethoxazole 1 tab PO. 2235: The patient was seen and evaluated by Dr. Barrios of [facility] Rheumatology. She felt the patient did not have HSP and recommended the patient be placed on steroid taper and follow up with PCP this week. 2309: Upon reevaluation, the patient appeared to have improvement of her symptoms. I discussed tonight's findings with the patient. She verbalized agreement of the treatment plan. The patient was discharged home. Medical Decision This is a 37-year-old female presenting with a rash, joint pain, chest pain and leg swelling. Differential diagnosis includes HSP, vasculitis, thrombocytopenia , DVT, pulmonary embolism, Lyme disease. I did perform a limited focused review of portions of the patient's old chart on the electronic medical record. The patient has had no recent pertinent visits to this hospital. I did evaluate the patient as noted above. The patient is well-appearing but she does have a purpuric rash or petechia to her lower extremities. She also complains of joint pain to the fingers, neck and ankles. She did recently travel to [place] and complains of leg swelling and chest pain as well. She did, however, have the chest pain prior to traveling. IV access was established. The patient was placed on a continuous cardiac care nurse. I did order and personally review the patient's 12-lead EKG and chest x-ray as described above. I did order and review the patient's blood work as noted in the electronic medical record. She has a normal platelet count. Her troponin is negative. Her d-dimer is significantly elevated. Doppler ultrasounds of the lower extremities are normal and show no signs of DVTs. After discussion with the patient, I did order a CT of the chest. I did review the images myself as well as the radiology report as described above. The patient does not have signs of pulmonary embolism. Urinalysis that demonstrated signs of infection. She denies having urinary symptoms. She does state that sometimes she does have urinary tract infections without symptoms. She was treated with Bactrim. I did discuss the test results with the patient. I did discuss the case with the network communications engineer division controller who recommended I call a transit specialist instead. I did speak to Dr. Barrios of rheumatology who came in to see the patient. She felt the patient did not have HSP. She recommended placing the patient on a steroid taper and having her follow up with her PCP. Should she continue to have a rash she was seen the patient about 2 weeks in the office. The patient was given a prescription for Bactrim as well as a steroid taper. She was discharged in good condition. Medication Reconcilliation Current Medication List: was personally reviewed by me Blood Pressure Screening Patient's blood pressure: Elevated blood pressure Blood pressure disposition: Referred to PCP Consults Time Called: 2025 Consulting Physician: Dr. Hua-Hematology/Oncology Returned Call: [address] Hua of Hematology/Oncology. We discussed the patient and her results. She states she doesn't usually treat cases like this and recommended us calling rheumatology. Additional Consults: Time Called: 2109 Consulted Physician: Dr. Barrios-[facility] Rheumatology Returned Call: 2118 Additional Comments: I spoke with Dr. Barrios of [facility] Rheumatology. We discussed the patient and her results. She will come in and evaluate the patient. Impression Primary Impression: Purpura Additional Impressions: UTI (urinary tract infection) Acute chest pain Scribe Attestation The scribe's documentation has been prepared under my direct and personally reviewed by me in its entirety. I confirm that the note above accurately reflects all work, treatment, procedures, and medical decision making performed by me. Departure Information Dispostion Home / Self-Care Referrals Franck Moya M.D. (PCP) Forms HOME CARE DOCUMENTATION FORM, IMPORTANT VISIT INFORMATION, WORK / SCHOOL INSTRUCTIONS Patient Instructions ED Chest Pain Atypical Unkn Cause, ED UTI Cystitis Female, My [facility] Additional Instructions You have been examined and treated today on an emergency basis only. This is not a substitute for, or an effort to provide, complete comprehensive medical care. It is impossible to recognize and treat all injuries or illnesses in a single emergency department visit. It is therefore important that you follow up closely with your physician. Call as soon as possible for an appointment. Return for worsening symptoms or if you develop fever, vomiting, or any other concerning symptoms. Problem Qualifiers Additional Impressions: UTI (urinary tract infection) Urinary tract infection type: acute cystitis Hematuria presence: without hematuria Qualified Codes: N30.00 - Acute cystitis without hematuria
--- NOTE | 2017-03-27 11:51 | Pharmacy Progress Note ---
ED Pharmacist Culture FollowUp Date of Service: Mar 27, 2017. Patient was sent home with a prescription for Bactrim, which should cover the klebsiella pneumoniae growing from the patient's urine culture.
== END 2017-03-25 23:01 | disposition home or self-care (01) ==
LOC: C.EDB 17:26
DX: D69.2 Other nonthrombocytopenic purpura (principal); N30.00 Acute cystitis without hematuria; R07.9 Chest pain, unspecified; M25.50 Pain in unspecified joint; J45.909 Unspecified asthma, uncomplicated; J44.9 Chronic obstructive pulmonary disease, unspecified; Z87.442 Personal history of urinary calculi; G43.909 Migraine, unspecified, not intractable, without status migrainosus; K27.9 Peptic ulcer, site unspecified, unspecified as acute or chronic, without hemorrhage or perforation; Z83.3 Family history of diabetes mellitus; F17.210 Nicotine dependence, cigarettes, uncomplicated